=== PATIENT | female | born 1960 | race Caucasian/White ===

== ENCOUNTER 2016-07-10 19:55 | Inpatient (IN) | payer OTHER ==
[~2016-07-10] VITALS: Ht 157.5 cm; Wt 41.8 kg
[~2016-07-10 19:55] MED LIST: DEXT30CA6 PO; DEXT5TAB27 PO; DICL75TA PO; METH10TA2 PO; OLAN15TA3 PO
[2016-07-10] MEDS ORDERED: IPRATRPIUM/ALBUTEROL 0.5/2.5MG 3 ML NEBU. ONE (20:01)
--- NOTE | 2016-07-10 20:01 | ED.ADGEN ---
Past History Past Medical History: Arthritis, COPD, Other Past Surgical History: Appendectomy, , Hip Replacement, Knee Replacement, Tubal ligation, Other Smoking: Cigarettes, Greater than 1 pack/day Alcohol Use: None Drug Use: None Adult General Chief Complaint Chief Complaint Short of breath HPI HPI Patient is a 55 year old and female who presents with orders of breath and wheezing. She states that she has a concentrator at home and oxygen tanks but she's been a powerful last 4 days. She states she used up her oxygen Use her breathing treatment machines and she woke up this morning feeling short of breath and over the course of the day it got worse. She states she's been having a cream colored sputum production which she has at times. She had some chest discomfort however that feels better now that she is on oxygen. She denies any fevers chills nausea or vomiting. She also has a history of rheumatoid arthritis she states she's been on oxygen around 2-2-1/2 L a day's for the last 6 months. EMS had put on BiPAP and gave her breathing treatment in route. Review of Systems Review of Systems Constitutional: Denies fever or chills [] Eyes: Denies change in visual acuity, redness, or eye pain [] HENT: Denies nasal congestion or sore throat [] Respiratory: Positive for wheezing or shortness of breath Cardiovascular: No additional information not addressed in HPI [] GI: Denies abdominal pain, nausea, vomiting, bloody stools or diarrhea [] : Denies dysuria or hematuria [] Musculoskeletal: Denies back pain or joint pain [] Integument: Denies rash or skin lesions [] Neurologic: Denies headache, focal weakness or sensory changes [] Endocrine: Denies polyuria or polydipsia [] Current Medications Current Medications Current Medications Medications (Trade) Dose Ordered Sig/Maribel Start Time Stop Time Status Last Admin Dose Admin Albuterol/ Ipratropium (Duoneb) 3 ml STK-MED ONCE 07/10/16 20:01 07/10/16 20:02 DC Azithromycin (Zithromax) 500 mg 1X ONCE 07/10/16 21:15 07/10/16 21:16 DC Methadone HCl (Dolophine) 10 mg Q8H PRN 07/10/16 22:15 UNV Methylprednisolone Sodium Succinate (Solu-Medrol 125mg Vial) 125 mg 1X ONCE 07/10/16 20:15 07/10/16 20:16 DC 07/10/16 20:15 125 MG Allergies Allergies Allergies Coded Allergies Type Severity Reaction Last Updated Verified Penicillins Allergy Unknown DIFFICULTY BREATHING 11/03/14 No Physical Exam Physical Exam Constitutional: Well developed, well nourished, no acute distress, non-toxic appearance. [] HENT: Normocephalic, atraumatic, bilateral external ears normal, oropharynx moist, no oral exudates, nose normal. [] Eyes: PERRLA, EOMI, conjunctiva normal, no discharge. [] Neck: Normal range of motion, no tenderness, supple, no stridor. [] Cardiovascular:Heart rate regular rhythm, no murmur [] Lungs & Thorax: Bilateral breath sounds decreased in the bases with moderate expiratory wheezing bilaterally. Abdomen: Bowel sounds normal, soft, no tenderness, no masses, no pulsatile masses. [] Skin: Warm, dry, no erythema, no rash. [] Back: No tenderness, no CVA tenderness. [] Extremities: No tenderness, no cyanosis, no clubbing, ROM intact, no edema. [] Neurologic: Alert and oriented X 3, normal motor function, normal sensory function, no focal deficits noted. [] Psychologic: Affect normal, judgement normal, mood normal. [] Current Patient Data Vital Signs Vital Signs Date Time Temp Pulse Resp B/P (MAP) Pulse Ox O2 Delivery O2 Flow Rate FiO2 07/10/16 19:55 99.0 118 28 159/105 (123) 99 Nasal Cannula 3.0 Lab Results Laboratory Tests Test 07/10/16 20:10 White Blood Count 6.9 x10^3/uL (4.0-11.0) Red Blood Count 3.89 x10^6/uL (3.50-5.40) Hemoglobin 10.5 g/dL (12.0-15.5) L Hematocrit 32.1 % (36.0-47.0) L Mean Corpuscular Volume 83 fL (79-100) Mean Corpuscular Hemoglobin 27 pg (25-35) Mean Corpuscular Hemoglobin Concent 33 g/dL (31-37) Red Cell Distribution Width 18.0 % (11.5-14.5) H Platelet Count 578 x10^3/uL (140-400) H Neutrophils (%) (Auto) 56 % (31-73) Lymphocytes (%) (Auto) 33 % (24-48) Monocytes (%) (Auto) 7 % (0-9) Eosinophils (%) (Auto) 4 % (0-3) H Basophils (%) (Auto) 1 % (0-3) Neutrophils # (Auto) 3.8 x10^3uL (1.8-7.7) Lymphocytes # (Auto) 2.3 x10^3/uL (1.0-4.8) Monocytes # (Auto) 0.5 x10^3/uL (0.0-1.1) Eosinophils # (Auto) 0.2 x10^3/uL (0.0-0.7) Basophils # (Auto) 0.0 x10^3/uL (0.0-0.2) Sodium Level 144 mmol/L (136-145) Potassium Level 3.2 mmol/L (3.5-5.1) L Chloride Level 107 mmol/L (98-107) Carbon Dioxide Level 30 mmol/L (21-32) Anion Gap 7 (6-14) Blood Urea Nitrogen 9 mg/dL (7-20) Creatinine 0.6 mg/dL (0.6-1.0) Estimated GFR (Cockcroft-Gault) 103.0 Glucose Level 98 mg/dL (70-99) Calcium Level 8.9 mg/dL (8.5-10.1) Creatine Kinase 79 U/L (26-192) Creatine Kinase MB (Mass) 2.6 ng/mL (0.0-3.6) Creatine Kinase MB Relative Index 3.3 % (0-4) Troponin I Quantitative < 0.017 ng/mL (0-0.055) CG-Zzv-[id number]-Type Natriuretic Peptide 665 pg/mL (0-124) H EKG EKG EKG shows heart rate of 92 sinus rhythm, no ST elevations or T-wave inversions, normal axis, QTC 450 ms, as interpreted by me. Radiology/Procedures Radiology/Procedures View chest x-ray did not show any focal consolidations, bony abnormalities, pneumothorax, hyperinflated lungs noted, as interpreted by me. Course & Med Decision Making Course & Med Decision Making Pertinent Labs and Imaging studies reviewed. (See chart for details) Labs, chest x-ray, EKG is non-concerning, she'll need to be admitted since she doesn't have a oxygen at home or electricity at this point. DuMando nebs, oxygen is been applied, she was started on azithromycin po and 125 Solu-Medrol has been given IV. She is stable condition this time be admitted to the hospitalist. Final Impression Final Impression COPD exacerbation Methadone dependent Chronic anemia Hypokalemia Problems: Dragon Disclaimer Dragon Disclaimer This electronic medical record was generated, in whole or in part, using a voice recognition dictation system. MOOKIE BECERRA MD July 10, 2016 20:01
[2016-07-10] MEDS ORDERED: IPRATRPIUM/ALBUTEROL 0.5/2.5MG 3 ML NEBU. NEB ONE (20:15)
[2016-07-10] MEDS ORDERED: methylPREDNISolone SOD SUCC PF 125 MG/2 ML VIAL. IV ONE (20:15)
[2016-07-10 20:31] LABS: BASO % 1 % (0-3); EOS # 0.2 x10^3/uL (0.0-0.7); EOS % 4 % (0-3); HEMATOCRIT 32.1 % (36.0-47.0); HEMOGLOBIN 10.5 g/dL (12.0-15.5); LYMPH # 2.3 x10^3/uL (1.0-4.8); LYMPH % 33 % (24-48); MEAN CORPUSCULAR HEMOGLOBIN 27 pg (25-35); MEAN CORPUSCULAR HGB CONC 33 g/dL (31-37); MEAN CORPUSCULAR VOLUME 83 fL (79-100); MONO # 0.5 x10^3/uL (0.0-1.1); MONO % 7 % (0-9); NEUT # 3.8 x10^3uL (1.8-7.7); NEUT % 56 % (31-73); PLATELET COUNT 578 x10^3/uL (140-400); RED BLOOD COUNT 3.89 x10^6/uL (3.50-5.40); WHITE BLOOD COUNT 6.9 x10^3/uL (4.0-11.0)
[2016-07-10 20:48] LABS: CALCIUM 8.9 mg/dL (8.5-10.1); CREATININE 0.6 mg/dL (0.6-1.0); POTASSIUM 3.2 mmol/L (3.5-5.1)
[2016-07-10] MEDS ORDERED: AZITHROMYCIN 250 MG TABLET. PO ONE (21:15)
--- NOTE | 2016-07-10 21:40 | ACF ---
Admission Criteria Forms COPD Clinical Indications for Admission to Inpatient Care (Place 'X' for any and all applicable criteria): Admission is indicated for ANY ONE of the following (1)(2)(3): [X ]I. Acute exacerbation by high-risk comorbidity (e.g., pneumonia, dysrhythmia, heart failure, pleural effusion, pneumothorax) or severe underlying COPD (e.g., steroid dependent) [ ]II. Inpatient admission required rather than observation care (see Chronic Obstructive Pulmonary Disease: Observation Care) because of ANY ONE of the following: [ ]a) New or pre-existing signs or symptoms of COPD (eg, dyspnea or Tachypnea at rest or with minimal activity) that persist despite outpatient and observation care treatment [ ]b) New-onset hypoxemia (room air SaO2 less than 90%, PO2 less than 60 mm Hg (8.0 kPa)) that persists despite outpatient and observation care treatment [ ]c) Worsening of pre-existing hypoxemia (eg, new or increased requirement for supplemental oxygen to maintain oxygenation at baseline level) that persists despite outpatient and observation care treatment, with oxygen treatment needs performable only in acute inpatient setting [ ]d) Hypercarbia (PCO2 greater than 40 mm Hg (5.3 kPa))-induced respiratory acidosis (pH less than 7.35) that persists despite outpatient and observation care treatment [ ]e) Supplemental oxygen or respiratory treatments for over 24 hours that are performable only in acute inpatient setting [ ]f) Chest tube placement with active evacuation (e.g., suction, drainage) (5) [ ]g) Other condition, treatment or monitoring requiring inpatient admission [ ]III. Planned invasive surgical or diagnostic procedures requiring acute- care hospitalization [ ]IV. Acute respiratory failure (e.g., uncompensated hypercarbia, severe hypoxemia) [ ]V. Severe comorbid condition (e.g., severe steroid myopathy, acute vertebral fracture) that has acutely worsened pulmonary function [ ]. Confusion state, lethargy, obtundation, stupor or coma Extended stay beyond goal length of stay may be needed for (31)(32): [ ]a ) Respiratory Failure. [ ]b) Severe or persisting hypoxemia or hypercarbia [ ]c) Severe or persistent dyspnea [ ]d) Comorbidities (e.g. chronic heart failure, atrial fibrillation with rapid response, pneumonia) [ ]e) Malnutrition The original [facility] content created by [employer] has been revised. The portions of the content which have been revised are identified through the use of italic text or in bold, and [employer] has neither reviewed nor approved the modified material. All other unmodified content is copyright [facility]. Please see references footnoted in the original [facility] edition 2016 Admission Criteria Met?: Yes NADER LOPEZ July 10, 2016 21:40
[2016-07-10] MEDS ORDERED: POTASSIUM CHLORIDE 20 MEQ TABLET.ER. PO ONE (22:45)
[2016-07-10] MEDS ORDERED: METHADONE 5 MG/5 ML SOLUTION. PEG PRN (22:45)
[2016-07-10] MEDS: ONDANSETRON PF 4 MG/2 ML VIAL. IV PRN (22:55)
--- NOTE | 2016-07-10 22:58 | EKG ---
[address] [address] Test Date: 2016-07-10 Test Time: 20:23:43 Pat Name: ROBBIE QUEZADA Department: Room: 120 A Gender: F Sterile Proc Tech: : 1960 Requested By: MOOKIE BECERRA Order Number: [id number] Reading MD: Surendra Zepeda Measurements Intervals [place] Rate: 104 P: 90 FL: 104 QRS: 4 QRSD: 96 T: 56 QT: 350 QTc: 461 Interpretive Statements SINUS TACHYCARDIA Electronically Signed On 07-16-2016 9:12:02 CDT by Surendra Zepeda
[2016-07-11] VITALS (7 sets, daily range): BP systolic 134–151; BP diastolic 74–83
[2016-07-11] MEDS ORDERED: SULF500T7 PO (01:35)
[2016-07-11] MEDS ORDERED: DEXT30CA6 PO (01:38)
[2016-07-11] MEDS ORDERED: TIZA4TAB PO (01:38)
[2016-07-11] MEDS ORDERED: PARO20TA3 PO (01:39)
[2016-07-11 01:40] LABS: BACTERIA,URINE FEW /HPF (0-FEW); BILIRUBIN,URINE NEG (NEG); CLARITY,URINE HAZY; COLOR,URINE YELLOW; GLUCOSE,URINE NEG (NEG); NITRITE,URINE NEG (NEG); RBC,URINE 0 /HPF (0-2); SQUAMOUS EPITHELIAL CELL,UR FEW /LPF; UROBILINOGEN,URINE 0.2 mg/dL (0.2 mg/dL)
[2016-07-11] MEDS ORDERED: IPRA4AER INH (01:42)
[2016-07-11] MEDS ORDERED: POTA10CA PO (01:43)
[2016-07-11] MEDS ORDERED: FURO20TA3 PO (01:43)
[2016-07-11] MEDS ORDERED: VARE1TAB20 PO (01:44)
[2016-07-11] MEDS ORDERED: FUROSEMIDE 20 MG TABLET PO PRN (01:45)
[2016-07-11] MEDS ORDERED: NON FORMULARY ITEM (Ipratropium/Albuterol Sulfate (Combivent Respimat Inhal) 1 PUFF) INH PRN (01:45)
[2016-07-11] MEDS ORDERED: tiZANidine 4 MG TABLET. PO PRN (01:45)
[2016-07-11] MEDS ORDERED: diphenhydrAMINE HCL 25 MG CAPSULE PO ONE (03:52)
[2016-07-11] MEDS ORDERED: diphenhydrAMINE HCL 25 MG CAPSULE PO PRN (04:00)
[2016-07-11] MEDS ORDERED: ACETAMINOPHEN 325 MG TABLET PO PRN (04:00)
[2016-07-11 04:15] LABS: BASO % 0 % (0-3); EOS % 0 % (0-3); HEMOGLOBIN 10.3 g/dL (12.0-15.5); LYMPH # 0.4 x10^3/uL (1.0-4.8); LYMPH % 7 % (24-48); MEAN CORPUSCULAR HEMOGLOBIN 27 pg (25-35); MEAN CORPUSCULAR HGB CONC 32 g/dL (31-37); MEAN CORPUSCULAR VOLUME 84 fL (79-100); MONO % 1 % (0-9); NEUT # 4.7 x10^3uL (1.8-7.7); NEUT % 92 % (31-73); PLATELET COUNT 583 x10^3/uL (140-400); RED BLOOD COUNT 3.83 x10^6/uL (3.50-5.40); RED CELL DISTRIBUTION WIDTH 18.2 % (11.5-14.5); WHITE BLOOD COUNT 5.1 x10^3/uL (4.0-11.0)
[2016-07-11 04:18] LABS: CALCIUM 9.1 mg/dL (8.5-10.1); CREATININE 0.7 mg/dL (0.6-1.0); GFR 86.2; POTASSIUM 4.5 mmol/L (3.5-5.1)
[2016-07-11] MEDS ORDERED: IPRATRPIUM/ALBUTEROL 0.5/2.5MG 3 ML NEBU. ONE (05:28)
[2016-07-11] MEDS ORDERED: ALBUTEROL SULFATE 2.5 MG/3 ML NEBU. NEB PRN (07:15)
--- NOTE | 2016-07-11 07:29 | RAD ---
Exam performed: One view chest. History: Shortness of breath today. Date of service: 07/10/16. Comparison: Single view chest from 11/03/14. Single AP upright portable view chest findings: Heart size and mediastinal silhouette appears within limits of normal. The pulmonary vascularity is unremarkable. Prominent interstitial markings are redemonstrated both lungs probably chronic. Emphysematous changes. No focal infiltrates, effusion or pneumothorax seen. The normal Impression: No acute cardiopulmonary process seen. Emphysematous and chronic interstitial changes are noted.
[2016-07-11] MEDS ORDERED: IPRATRPIUM/ALBUTEROL 0.5/2.5MG 3 ML NEBU. NEB SCH (08:00)
[2016-07-11] MEDS: DICLOFENAC SODIUM 75 MG TABLET.DR PO SCH ×2 (08:15→20:23)
[2016-07-11] MEDS: PARoxetine 20 MG TABLET PO SCH (08:15)
[2016-07-11] MEDS: sulfaSALAzine 500 MG TABLET PO SCH ×2 (08:15→20:22)
[2016-07-11] MEDS: POTASSIUM CHLORIDE 10 MEQ CAPSULE.ER. PO SCH (08:16)
[2016-07-11] MEDS: METHADONE 5 MG TABLET. PO PRN ×2 (09:31→17:51)
[2016-07-11] MEDS: IPRATRPIUM/ALBUTEROL 0.5/2.5MG 3 ML NEBU. NEB SCH ×3 (10:28→21:17)
[2016-07-11] MEDS ORDERED: methylPREDNISolone SOD SUCC PF 40 MG/ML VIAL. IV ONE (14:00)
[2016-07-11] MEDS ORDERED: BENZOCAINE 20% ORAL GEL 11.9GM TUBE. TP PRN (19:00)
--- NOTE | 2016-07-11 20:20 | HP ---
ADMIT DATE: 07/11/2016 HISTORY OF PRESENT ILLNESS: The patient is a 55-year-old female patient who came to the Emergency Room complaining of shortness of breath, right-sided chest pain, cough with greenish sputum that has been going on for the last 2 days. She was evaluated in the Emergency Room and was admitted with COPD exacerbation. PAST MEDICAL HISTORY: Significant for chronic obstructive pulmonary disease, rheumatoid arthritis, and marked unintentional weight loss from 170-95 pound. PAST SURGICAL HISTORY: Significant for bilateral total hip arthroplasty, left total knee arthroplasty, appendectomy, two C-sections, total abdominal hysterectomy, and bilateral salpingo-oophorectomy. ALLERGIES: She is allergic to penicillin. MEDICATIONS: She is currently on following medications: She is on Adderall XR 30 mg twice a day, diclofenac sodium 75 mg twice a day, furosemide 20 mg once a day, ipratropium bromide, albuterol sulfate, Combivent Respimat inhaler 1 puff every 4 hours, methadone 10 mg 3 times a day, paroxetine 20 mg daily, potassium chloride 20 mEq once a day, sulfasalazine 1000 mg p.o. b.i.d., and tizanidine 4 mg 3 times a day, Chantix 1 tablet as per starting dose. FAMILY HISTORY: Significant for one sister at age of 48 with multiple sclerosis. She has 2 brothers and 2 sisters they are healthy. Her father at age of 91 and mother at the age of 86 because of complication of hip surgery. SOCIAL HISTORY: She is , has 1 son and daughter. She smokes half a pack a day, does not drink alcohol or use any recreational drugs. She is on disability now. 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 REVIEW OF SYSTEMS: The patient denied any blurring of vision, cataract, glaucoma, or macular degeneration. Denied any earache, tinnitus, or sensorineural deafness. Denied any nosebleeds, stuffy nose, or postnasal drip. Denied any sore throat, sore tongue, toothache, hoarseness of voice, or difficulty swallowing. Denied any nausea, vomiting, diarrhea, or constipation. Denied any hematemesis, melena, or hematochezia. Denied any dysuria, frequency, or hematuria. Did complain obvious chest discomfort, shortness of breath, cough, yellowish sputum. Did complain of unintentional weight loss from 170 down to 95 pounds. PHYSICAL EXAMINATION: GENERAL: When I examined her on arrival to the Emergency Room, she was clearly markedly emaciated tachypneic, pale. No jaundice, cyanosis, or thyromegaly. No jugular venous distension. No lower limb edema. VITAL SIGNS: Her heart rate was 118, blood pressure was 159/105, temperature was 99, respiratory rate was 28, and oxygen saturation was 99% on 3 liters of oxygen by nasal cannula. HEAD, EYES, EARS, NOSE, AND THROAT: Normocephalic, atraumatic. NECK: Supple. HEART: Showed normal first and second heart sounds with no gallop, rub, or murmur. CHEST: ____ equally reduced expansion, reduced air entry, ____. There is scattered rhonchi with moderate bilateral expiratory wheezes. No crepitation. ABDOMEN: Scaphoid, soft, nontender. NEUROLOGIC: She was awake, alert, responding appropriately. Cranial nerves intact. EXTREMITIES: She moves extremities without difficulty. LABORATORY DATA: Showed that her white cell count was 6900, hemoglobin 10.5, hematocrit 32, MCV 83, and platelet count 578,000 with normal manual differential. Her chemistry showed a serum sodium 144, potassium 3.2, chloride 107, bicarbonate 30, anion gap of 7, BUN 9, creatinine 0.6, estimated GFR was 103 mL per minute. Her glucose was 98, calcium was 8.9, CK-MB and troponin were all normal. Her beta natriuretic peptide was 665. Her urinalysis was essentially unremarkable. Her chest x-ray showed that the heart size and mediastinal silhouette appears within normal limit. The pulmonary vascularity is unremarkable, prominent interstitial markings are redemonstrated in both lungs and both lungs probably chronic emphysematous changes, no focal infiltrate, effusion, or pneumothorax seen. IMPRESSION: No acute cardiopulmonary process seen. Emphysematous and chronic interstitial changes are noted. The patient was treated with Solu-Medrol as well as nebulized albuterol and Atrovent started, given Zithromax, and was admitted with diagnosis of acute bronchitis and chronic obstructive pulmonary disease exacerbation. We will continue with all her current medications including her sulfasalazine, diclofenac. We will follow her closely and decide on further management accordingly. NAINA BURRELL MD DR: Silvia JOB#: [id number] / [id number]
[2016-07-11] MEDS: DOXYCYCLINE HYCLATE 100 MG TABLET PO SCH (20:23)
[2016-07-11] MEDS: ONDANSETRON PF 4 MG/2 ML VIAL. IV PRN (20:34)
[2016-07-12 05:28] VITALS: BP 156/80
[2016-07-12] MEDS: IPRATRPIUM/ALBUTEROL 0.5/2.5MG 3 ML NEBU. NEB SCH ×4 (05:36→21:40)
[2016-07-12 06:27] LABS: BASO % 0 % (0-3); EOS % 0 % (0-3); HEMATOCRIT 29.5 % (36.0-47.0); HEMOGLOBIN 9.8 g/dL (12.0-15.5); LYMPH # 2.8 x10^3/uL (1.0-4.8); LYMPH % 29 % (24-48); MEAN CORPUSCULAR HEMOGLOBIN 27 pg (25-35); MEAN CORPUSCULAR HGB CONC 33 g/dL (31-37); MEAN CORPUSCULAR VOLUME 82 fL (79-100); MONO # 0.5 x10^3/uL (0.0-1.1); MONO % 5 % (0-9); NEUT # 6.2 x10^3uL (1.8-7.7); NEUT % 65 % (31-73); PLATELET COUNT 651 x10^3/uL (140-400); RED BLOOD COUNT 3.58 x10^6/uL (3.50-5.40); RED CELL DISTRIBUTION WIDTH 18.3 % (11.5-14.5); WHITE BLOOD COUNT 9.5 x10^3/uL (4.0-11.0)
[2016-07-12 06:43] LABS: ALBUMIN/GLOBULIN RATIO 0.5 (1.0-1.7); CALCIUM 9.5 mg/dL (8.5-10.1); CREATININE 0.7 mg/dL (0.6-1.0); GFR 86.2; POTASSIUM 4.6 mmol/L (3.5-5.1); TOTAL BILIRUBIN 0.3 mg/dL (0.2-1.0); TOTAL PROTEIN 8.9 g/dL (6.4-8.2)
[2016-07-12 07:33] LABS: ANISOCYTOSIS PRESENT; HYPOCHROMIA SLIGHT; PLT ESTIMATE INCREASED (ADEQUATE); TARGET CELLS PRESENT
[2016-07-12] MEDS: DICLOFENAC SODIUM 75 MG TABLET.DR PO SCH ×2 (08:00→20:46)
[2016-07-12] MEDS: DOXYCYCLINE HYCLATE 100 MG TABLET PO SCH ×2 (08:00→20:46)
[2016-07-12] MEDS: sulfaSALAzine 500 MG TABLET PO SCH ×2 (08:01→20:47)
[2016-07-12] MEDS: PARoxetine 20 MG TABLET PO SCH (08:01)
[2016-07-12] MEDS: POTASSIUM CHLORIDE 10 MEQ CAPSULE.ER. PO SCH ×2 (08:01→08:03)
[2016-07-12] MEDS: METHADONE 5 MG TABLET. PO PRN ×2 (08:01→15:12)
--- NOTE | 2016-07-12 09:40 | PN ---
DATE: 07/11/2016 SUBJECTIVE: The patient is sitting up in her bed in no apparent distress. She continued to have cough with the scanty yellowish sputum and some discomfort to the right side, especially when coughing, but denied any hemoptysis, continues to be somewhat short of breath, although generally she is feeling much better than yesterday. PHYSICAL EXAMINATION: GENERAL: When I examined her, she looked pale, cachectic, but no jaundice, cyanosis or thyromegaly. No jugular venous distention. No limb edema. VITAL SIGNS: Her heart rate was 108, blood pressure was 134/78, temperature was 98.2, respiratory rate 20 and oxygen saturation was 96%. HEAD, EYES, EARS, NOSE AND THROAT: Showed normocephalic, atraumatic. NECK: Supple. HEART: Showed normal first and second heart sounds. No gallop, rub or murmur. CHEST: Clear to auscultation. No crepitation or rhonchi. ABDOMEN: Distended, soft, nontender. No guarding or rigidity. No organomegaly. All hernial orifices intact. Bowel sounds normal. NEUROLOGIC: She was awake, alert, responding appropriately. Cranial nerves are intact. She moves extremities without difficulty, although she has severe pain in her right knee joint due to her rheumatoid arthritis. Her intake over the last 24 hours was 500, output was 100. LABORATORY DATA: Her lab work this morning showed that her serum sodium is 143, potassium is up to 4.5, chloride 106, bicarbonate 29, anion gap of 8, BUN 14, creatinine 0.7, estimated GFR was 86 mL per minute. Her glucose 132, calcium was 9.1. White cell count was 5100, hemoglobin 10, hematocrit 32, MCV 84 and platelet count of 583,000. She had 3 sets of cardiac enzyme, all of them showed troponin to be less than 0.017. PLAN: To continue with IV Solu-Medrol, continue with doxycycline 100 mg twice a day, continue with nebulized albuterol, Atrovent together with other medication. We will repeat her lab works tomorrow and decide on further management accordingly. NAINA BURRELL MD DR: JENNA/ayde JOB#: [id number] / [id number]
[2016-07-12 11:16] VITALS: BP 142/78
[2016-07-12] MEDS ORDERED: predniSONE 20 MG TABLET PO ONE (13:00)
[2016-07-12] MEDS: NICOTINE 14MG PATCH. TD SCH (13:39)
[2016-07-12 15:10] VITALS: BP 150/88
--- NOTE | 2016-07-12 19:24 | PN ---
DATE: 07/12/2016 SUBJECTIVE: The patient is sitting on the edge of the bed, eating her lunch, continued to have chest tightness and shortness of breath. PHYSICAL EXAMINATION: GENERAL: On examining her, she is extremely cachectic, somewhat pale, but no jaundice, cyanosis, or thyromegaly. No jugular venous distention. No limb edema. VITAL SIGNS: Her heart rate was 107, blood pressure 142/78, temperature was 99.3, respiratory rate 22 and oxygen saturation was 90% on room air. HEAD, EYES, EARS, NOSE AND THROAT: Showed normocephalic, atraumatic. NECK: Supple. HEART: Showed normal first and second heart sounds. No gallop, rub or murmur. CHEST: Clear to auscultation. Chest showed central trachea, equal bilateral expansion, air entry, vesicular sounds with bilateral scattered rhonchi. I could not appreciate any crepitation. ABDOMEN: Distended, scaphoid, soft, nontender. No guarding or rigidity. No organomegaly. All hernial orifices intact. Bowel sounds normal. NEUROLOGIC: She is awake, somehow confused today. All her cranial nerves are intact. She moves extremities without difficulty. Her intake was 500, output was 100. LABORATORY DATA: Her lab work showed a white cell count of 9500, hemoglobin 10, hematocrit 30, MCV 82 and platelet count of 651,000. Her chemistry showed a serum sodium 138, potassium 4.6, chloride 102, bicarbonate 27, anion gap of 9, BUN 34, creatinine 0.7, estimated GFR was 86 mL per minute. Her glucose was 80, calcium was 9.5. Total bilirubin, AST, ALT were normal. Alkaline phosphatase slightly elevated. Total protein was 8.9, albumin was 3. Her C-reactive protein was 34.9 and erythrocyte sedimentation rate was 92 mm per hour. ASSESSMENT: 1. Acute bronchitis. 2. Chronic obstructive pulmonary disease exacerbation. 3. Rheumatoid arthritis. NAINA BURRELL MD DR: JENNA/ayde JOB#: [id number] / [id number]
[2016-07-12 19:30] VITALS: BP 141/84
[2016-07-12] MEDS ORDERED: OLANZapine 2.5 MG TABLET PO PRN (19:30)
[2016-07-12] MEDS: FLUTICASONE 50MCG/NASAL SPRAY 16GM BOTTLE. NS SCH (20:47)
--- NOTE | 2016-07-12 20:51 | RAD ---
PROCEDURE NONCONTRAST CT AT HISTORY 775912.001 Change in mental status, confusion, delusional. No priors. TECHNIQUE AXIAL NONCONTRAST IMAGES CT HEAD WERE PAIN. COMPARISON NO PRIOR IMAGES ARE AVAILABLE FOR COMPARISON. FINDINGS NO ACUTE OR SIGNIFICANT CALVARIAL FINDING IS SEEN. THE VISUALIZED PARANASAL SINUSES APPEAR UNREMARKABLE. THERE IS NO SUBDURAL OR EPIDURAL HEMATOMA. THERE IS SOME UNDERLYING ATROPHY. THERE IS A LUCENCY IN THE RIGHT DEEP WHITE MATTER. THIS LIKELY REFLECTS OLD DEEP WHITE MATTER MICROVASCULAR DISEASE OR AN OLD DEEP WHITE MATTER INFARCT. A LATE SUBACUTE OR EARLY CHRONIC INFARCT IS NOT ENTIRELY EXCLUDED. IF ADDITIONAL EVALUATION FOR BLAND INFARCT IS WARRANTED AN MRI EXAMINATION COULD BE PERFORMED. THERE IS NO EVIDENCE OF HEMORRHAGE. IMPRESSION Deep white matter lucency in the right cerebral hemisphere probably reflects old disease. A late subacute or early chronic infarct is not entirely excluded. There is no evidence of hemorrhage. No mass or midline shift is seen Electronically signed by: Vadim Wells (July 12, 2016 20:50:00)
--- NOTE | 2016-07-12 20:52 | PDOC ---
Exam Steve Demential Exam: Steve Note: Please also refer to the separate dictated note~for this date of service dictated separately.~Patient seen individually. Discussed the patient with Nursing staff reviewed the chart.~Reviewed interim history and current functioning. Reviewed vital signs,~Labs/ Radiology~and current medications noted below. Continue current treatment with the changes noted in the dictated addendum note Assessment: Vital Signs: Vital Signs Date Time Temp Pulse Resp B/P (MAP) Pulse Ox O2 Delivery O2 Flow Rate FiO2 07/12/16 19:30 98.3 106 20 141/84 (103) 91 07/12/16 15:41 Room Air 07/12/16 08:05 2.0 I&O Intake and Output 07/12/16 07:00 Intake Total 2660 ml Balance 2660 ml Intake Oral 2660 ml # Voids 7 Labs: Laboratory Tests Test 07/12/16 06:14 White Blood Count 9.5 x10^3/uL (4.0-11.0) # Red Blood Count 3.58 x10^6/uL (3.50-5.40) Hemoglobin 9.8 g/dL (12.0-15.5) L Hematocrit 29.5 % (36.0-47.0) L Mean Corpuscular Volume 82 fL (79-100) Mean Corpuscular Hemoglobin 27 pg (25-35) Mean Corpuscular Hemoglobin Concent 33 g/dL (31-37) Red Cell Distribution Width 18.3 % (11.5-14.5) H Platelet Count 651 x10^3/uL (140-400) H Neutrophils (%) (Auto) 65 % (31-73) Lymphocytes (%) (Auto) 29 % (24-48) Monocytes (%) (Auto) 5 % (0-9) Eosinophils (%) (Auto) 0 % (0-3) Basophils (%) (Auto) 0 % (0-3) Neutrophils # (Auto) 6.2 x10^3uL (1.8-7.7) Lymphocytes # (Auto) 2.8 x10^3/uL (1.0-4.8) Monocytes # (Auto) 0.5 x10^3/uL (0.0-1.1) Eosinophils # (Auto) 0.0 x10^3/uL (0.0-0.7) Basophils # (Auto) 0.0 x10^3/uL (0.0-0.2) Platelet Estimate Increased (ADEQUATE) Hypochromasia Slight Anisocytosis Present Target Cells Present Erythrocyte Sedimentation Rate 92 (0-25) H Sodium Level 138 mmol/L (136-145) Potassium Level 4.6 mmol/L (3.5-5.1) Chloride Level 102 mmol/L (98-107) Carbon Dioxide Level 27 mmol/L (21-32) Anion Gap 9 (6-14) Blood Urea Nitrogen 34 mg/dL (7-20) H Creatinine 0.7 mg/dL (0.6-1.0) Estimated GFR (Cockcroft-Gault) 86.2 BUN/Creatinine Ratio 49 (6-20) H Glucose Level 80 mg/dL (70-99) Calcium Level 9.5 mg/dL (8.5-10.1) Total Bilirubin 0.3 mg/dL (0.2-1.0) Aspartate Amino Transferase (AST) 16 U/L (15-37) Alanine Aminotransferase (ALT) 16 U/L (14-59) Alkaline Phosphatase 158 U/L (46-116) H C-Reactive Protein 34.9 mg/L (0-3.3) H Total Protein 8.9 g/dL (6.4-8.2) H Albumin 3.0 g/dL (3.4-5.0) L Albumin/Globulin Ratio 0.5 (1.0-1.7) L Current Medications: Meds: Current Medications Albuterol/ Ipratropium (Duoneb) 3 ml 1X ONCE NEB Last administered on 20:05; Start 07/10/16 at 20:15; Stop 07/10/16 at 20:16; Status DC Methylprednisolone Sodium Succinate (Solu-Medrol 125mg Vial) 125 mg 1X ONCE IV Last administered on 07/10/16 20:15; Start 07/10/16 at 20:15; Stop 07/10/16 at 20:16; Status DC Albuterol/ Ipratropium (Duoneb) 3 ml STK-MED ONCE .ROUTE ; Start 07/10/16 at 20: 01; Stop 07/10/16 at 20:02; Status DC Azithromycin (Zithromax) 500 mg 1X ONCE PO Last administered on 07/10/16 22:55 ; Start 07/10/16 at 21:15; Stop 07/10/16 at 21:16; Status DC Methadone HCl (Dolophine) 10 mg PRN Q8HRS PRN PEG PAIN Last administered on 07/10 23:21; Start 07/10/16 at 22:45; Stop 07/11/16 at 08:33; Status DC Potassium Chloride (Klor-Con) 40 meq 1X ONCE PO Last administered on 07/10/16 22:55; Start 07/10/16 at 22:45; Stop 07/10/16 at 22:46; Status DC Ondansetron HCl (Zofran) 4 mg PRN Q4HRS PRN IV NAUSEA/VOMITING Last administered on 07/11/16 20:34; Start 07/10/16 at 22:45; Stop 07/11/16 at 22:44 ; Status DC Albuterol/ Ipratropium (Duoneb) 3 ml RTQID NEB Last administered on 07/11/16 05:33; Start 07/11/16 at 08:00; Stop 07/11/16 at 08:00; Status DC Diclofenac Sodium (Voltaren) 75 mg BID PO Last administered on 07/12/16 20:46 ; Start 07/11/16 at 09:00 Furosemide (Lasix) 20 mg PRN DAILY PRN PO SEE COMMENTS; Start 07/11/16 at 01:45 Paroxetine HCl (Paxil) 20 mg DAILY PO Last administered on 07/12/16 08:01; Start 07/11/16 at 09:00 Potassium Chloride (Micro-K) 20 meq DAILY PO Last administered on 07/11/16 08: 16; Start 07/11/16 at 09:00 Sulfasalazine (Azulfidine) 1,000 mg BID PO Last administered on 07/12/16 20:47 ; Start 07/11/16 at 09:00 Tizanidine HCl (Zanaflex) 4 mg PRN TID PRN PO MUSCLE SPASMS Last administered on 07/12/16 20:46; Start 07/11/16 at 01:45 Non-Formulary Medication 1 puff Q4HRS PRN INH COUGH; Start 07/11/16 at 01:45; Stop 07/11/16 at 07:09; Status DC Diphenhydramine HCl (Benadryl) 50 mg PRN Q6HRS PRN PO ITCHING Last administered on 07/11/16 03:58; Start 07/11/16 at 04:00 Acetaminophen (Tylenol) 650 mg PRN Q6HRS PRN PO PAIN Last administered on 03:57; Start 07/11/16 at 04:00 Diphenhydramine HCl (Benadryl) 25 mg STK-MED ONCE PO ; Start 07/11/16 at 03:52; Stop 07/11/16 at 03:53; Status DC Albuterol/ Ipratropium (Duoneb) 3 ml STK-MED ONCE .ROUTE Last administered on 00:00; Start 07/11/16 at 05:28; Stop 07/11/16 at 05:29; Status DC Albuterol Sulfate (Ventolin) 2.5 mg PRN Q4HRS PRN NEB SHORTNESS OF BREATH; Start 07/11/16 at 07:15 Albuterol/ Ipratropium (Duoneb) 3 ml RTQID NEB Last administered on 07/12/16 15:41; Start 07/11/16 at 08:00 Methadone HCl (Dolophine) 10 mg PRN Q8HRS PRN PO PAIN Last administered on 07/12 15:12; Start 07/11/16 at 08:45 Methylprednisolone Sodium Succinate (Solu-Medrol 40mg Vial) 40 mg 1X ONCE IV Last administered on 07/11/16 14:37; Start 07/11/16 at 14:00; Stop 07/11/16 at 14:01; Status DC Doxycycline Hyclate (Vibra-Tab) 100 mg BID PO Last administered on 07/12/16 20 :46; Start 07/11/16 at 21:00 Benzocaine (Ora-Jel Maximum) 1 martine PRN QID PRN TP ORAL PAIN Last administered on 07/11/16 20:22; Start 07/11/16 at 19:00 Prednisone (Prednisone) 40 mg 1X ONCE PO Last administered on 07/12/16 13:39 ; Start 07/12/16 at 13:00; Stop 5/11/17 at 13:01; Status DC Nicotine (Nicoderm Cq 14mg) 1 patch DAILY TD Last administered on 07/12/16 13: 39; Start 07/12/16 at 14:00 Fluticasone Propionate (Flonase) 2 spray BID NS Last administered on 07/12/16 20:47; Start 07/12/16 at 21:00 Olanzapine (Zyprexa) 2.5 mg PRN Q2HR PRN PO PSYCHOSIS; Start 07/12/16 at 19:30 Active Scripts Active Reported Chantix (Varenicline Tartrate) 1 Each Tab.ds.pk 1 Each PO Potassium Chloride 10 Meq Capsule.er 20 Meq PO DAILY Furosemide 20 Mg Tablet 1 Tab PO DAILY PRN Combivent Respimat Inhal (Ipratropium/Albuterol Sulfate) 4 Gm Aer.w.adap 1 Puff INH Q4HRS PRN Paroxetine Hcl 20 Mg Tablet 1 Tab PO DAILY Tizanidine Hcl (Tizanidine HCl) 4 Mg Tablet 4 Mg PO TID PRN Sulfasalazine 500 Mg Tablet 1,000 Mg PO BID Diclofenac Sodium 75 Mg Tablet.dr 1 Tab PO BID Methadone Hcl 10 Mg Tablet 1 Tab PO TID Adderall Xr 30 Mg Capsule (Dextroamphetamine/Amphetamine) 30 Mg Cap.er.24h 1 Cap PO BID ROBERT REHMAN MD July 12, 2016 20:52
[2016-07-12 21:20] LABS: AMPHETAMINE/METHAMPHETAMINE POS (NEG); BARBITURATES NEG (NEG); BENZODIAZEPINES NEG (NEG); CANNABINOIDS NEG (NEG); COCAINE NEG (NEG); METHADONE POS (NEG); OPIATES NEG (NEG); PHENCYCLIDINE NEG (NEG)
[2016-07-12 23:30] VITALS: BP 128/76
[2016-07-13] MEDS: IPRATRPIUM/ALBUTEROL 0.5/2.5MG 3 ML NEBU. NEB SCH ×2 (05:21→10:33)
[2016-07-13 05:36] VITALS: BP 148/74
[2016-07-13 06:26] LABS: BASO % 0 % (0-3); EOS % 0 % (0-3); HEMOGLOBIN 8.8 g/dL (12.0-15.5); LYMPH # 1.5 x10^3/uL (1.0-4.8); LYMPH % 20 % (24-48); MEAN CORPUSCULAR HEMOGLOBIN 27 pg (25-35); MEAN CORPUSCULAR HGB CONC 33 g/dL (31-37); MEAN CORPUSCULAR VOLUME 82 fL (79-100); MONO # 0.3 x10^3/uL (0.0-1.1); MONO % 4 % (0-9); NEUT # 5.7 x10^3uL (1.8-7.7); NEUT % 76 % (31-73); PLATELET COUNT 564 x10^3/uL (140-400); RED BLOOD COUNT 3.28 x10^6/uL (3.50-5.40); RED CELL DISTRIBUTION WIDTH 18.2 % (11.5-14.5); WHITE BLOOD COUNT 7.6 x10^3/uL (4.0-11.0)
[2016-07-13 06:36] LABS: ALBUMIN 2.6 g/dL (3.4-5.0); ALBUMIN/GLOBULIN RATIO 0.5 (1.0-1.7); CALCIUM 8.6 mg/dL (8.5-10.1); CREATININE 0.6 mg/dL (0.6-1.0); POTASSIUM 4.6 mmol/L (3.5-5.1); TOTAL BILIRUBIN 0.2 mg/dL (0.2-1.0); TOTAL PROTEIN 7.7 g/dL (6.4-8.2)
[2016-07-13] MEDS: NICOTINE 14MG PATCH. TD SCH (09:30)
[2016-07-13] MEDS: sulfaSALAzine 500 MG TABLET PO SCH (09:30)
[2016-07-13] MEDS: METHADONE 5 MG TABLET. PO PRN (09:30)
[2016-07-13] MEDS: DOXYCYCLINE HYCLATE 100 MG TABLET PO SCH (09:30)
[2016-07-13] MEDS: DICLOFENAC SODIUM 75 MG TABLET.DR PO SCH (09:30)
[2016-07-13] MEDS: PARoxetine 20 MG TABLET PO SCH (09:31)
[2016-07-13] MEDS: POTASSIUM CHLORIDE 10 MEQ CAPSULE.ER. PO SCH (09:31)
[2016-07-13] MEDS: FLUTICASONE 50MCG/NASAL SPRAY 16GM BOTTLE. NS SCH (09:31)
[2016-07-13 10:57] VITALS: BP 127/74
[2016-07-13] MEDS ORDERED: DOXY100C2 PO (14:29)
--- NOTE | 2016-07-13 15:14 | CONS ---
DATE OF CONSULTATION: 07/12/2016 IDENTIFYING DATA: The patient is a 55-year-old female seen in bed [address] [facility] for a psychiatric consult requested by Dr. Yuen on account of the patient's hallucinations, acute mental status changes, talking to herself, and abnormal behaviors all within the last 12-14 hours. The patient had been in the hospital prior to that since 07/10/2016, and had not shown any of these behaviors. I have been asked to consult from a psychiatric standpoint. CHIEF COMPLAINT: "I've been diagnosed with bipolar disorder and OCD in the past and attention deficit disorder. I was on Seroquel in the past and take Adderall and Zoloft. I talk to my dog, but I do not hallucinate. Yes I talk in different voices, but I choose to do that." The patient is seen individually, discussed with nursing staff, and reviewed current past records. HISTORY OF PRESENT ILLNESS: The patient was admitted via the Emergency Room complaining of shortness of breath, right-sided chest pain, cough, and greenish sputum for the past 2 days. She was admitted with exacerbation of COPD. As stated, initially she did reasonably from a psychiatric standpoint, but since early today she is appeared manic according to nursing staff. She is "destroyed her room." Reportedly, the toilet is clogged. She took her SCD machine and put through it in the trashcan. She was looking for her grandson in the corridor and talking to herself an unknown objects in the corridor. She minimizes all of this. No suicidal or homicidal ideation, but she remains oriented to place and situation despite the above. PAST PSYCHIATRIC HISTORY: In addition to the past diagnosis of bipolar disorder, ADHD, depression, and anxiety she has had a rehab treatment for methamphetamine abuse, but denies using it for a long time. She states she saw a psychiatrist, but unsure of who it was and was unable to corroborate any other mood stabilizers she had been on for her bipolar disorder. PAST MEDICAL HISTORY: COPD with exacerbation, rheumatoid arthritis, and unintentional weight loss from 170 to 95 pounds. PAST SURGICAL HISTORY: Bilateral total hip arthroplasty, left total knee arthroplasty, appendectomy, two C-sections, total abdominal hysterectomy, and bilateral salpingo-oophorectomy. DRUG ALLERGIES: PENICILLIN. CURRENT PSYCHOTROPICS: Adderall-XR 30 mg twice a day. She is also on methadone 10 mg 3 times a day for pain and Paxil 20 mg a day. FAMILY HISTORY: One sister at age 48 with multiple sclerosis. No other relevant family psychiatric history was noted, but she was quite disorganized as I met with her. SOCIAL HISTORY: She is and has 1 son and her daughter. Smokes half a pack a day. Denies alcohol or current drug usage. She is on disability. 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 The patient was living in her home with her children and reportedly there is an $1800 electricity bill that was unpaid and power were shut off. The patient was unable to use oxygen reportedly. PHYSICAL EXAMINATION: VITAL SIGNS: Temperature 97.9, pulse 104, and BP 150/88. MENTAL STATUS EXAMINATION: I met with the patient at some length in her room. She is oriented to the date, knew it was 07/12/2016, and knew she was at [facility]. Extremely hyper-restless and attentive. Her room had things all over on the floor and in the trashcan. Attention span short. Speech coherent and rapid. She appears psychotic even though she denies any hallucinations. No suicidal or homicidal ideation. IMPRESSION: Psychotic disorder, unspecified, acute mental status changes, bipolar 1 disorder mixed with psychotic features, history of attention deficit hyperactivity disorder, and anxiety disorder, unspecified. Rest diagnoses as above. PLAN: The lisa of the patient's acute mental status changes is not entirely clear. We would recommend having urine drug screen, CT head, and starting Zyprexa 2.5 mg q.2 hours p.r.n. psychosis and agitation max 10 mg in 24 hours. I would like to see how the patient does with all of this, but if the bipolar symptoms seem to be contributing to her above we may have to reduce or stop the Paxil; decide on Adderall whether to continue it or not. Start her on a mood stabilizer. She should probably need outpatient psychiatric followup at the [facility] post-discharge. Dr. Yuen, thank you for the opportunity to participate in your patient's care. We will follow with you. ROBERT REHMAN MD DR: CLARICE/ayde JOB#: [id number] / [id number]
--- NOTE | 2016-07-13 20:04 | DS ---
DATE OF DISCHARGE: 07/13/2016 HOSPITAL COURSE: The patient is a 55-year-old female patient who was admitted originally with increasing shortness of breath and wheezing. Apparently, she has a concentrator at home and oxygen tanks but she has been without power for the last 4 days and she apparently used up all her oxygen and all her breathing treatment and cannot use her breathing machine. She was basically admitted with COPD exacerbation and was continued on her albuterol sulfate, continued with doxycycline 100 mg twice a day and arrangement has been made for her to have oxygen tanks and also her electricity bill was apparently paid for and it was felt that the patient is safe to go back home. She did have an episode of delirium while in the hospital for which she was seen by Dr. Gilbert and she has been more lucid today, oriented to time, place and person and a decision was made to discharge her home to follow obviously with her primary care physician. PHYSICAL EXAMINATION: GENERAL: When I examined her, she looked well and was clearly in no apparent respiratory distress. She was pale, cachectic, but no jaundice, cyanosis, or thyromegaly. No jugular venous distention. No limb edema. VITAL SIGNS: Her heart rate was 87, blood pressure 127/74, temperature was 97.8, respiratory rate 20 and oxygen saturation was 97% on 2 liters of oxygen. HEAD, EYES, EARS, NOSE AND THROAT: Showed normocephalic, atraumatic. NECK: Supple. HEART: Showed normal first and second heart sounds with no gallop, rub or murmur. CHEST: Clear to auscultation. No crepitation or rhonchi. ABDOMEN: Scaphoid, soft, nontender. NEUROLOGIC: She is awake, alert, responding appropriately. Cranial nerves are intact. EXTREMITIES: She moves extremities without difficulty. LABORATORY DATA: Her lab work as of this morning showed a white cell count of 7600, hemoglobin 8.8, hematocrit 27, MCV 82 and platelet count of 564,000. Her chemistry showed a serum sodium 137, potassium 4.6, chloride 102, bicarbonate 29, anion gap of 6, BUN of 26, creatinine 0.6, estimated GFR was 103 mL per minute. Her glucose 115, calcium was 8.6. Total bilirubin, AST, ALT were normal. Alkaline phosphatase was slightly elevated. Her total protein was 7.7, albumin 2.6. DISCHARGE MEDICATIONS: The patient was discharged home to continue on following medication: Dextroamphetamine and amphetamine or Adderall XR 30 mg twice a day, diclofenac sodium 75 mg twice a day, furosemide 20 mg once a day, ipratropium bromide, albuterol sulfate, Combivent Respimat 1 puff every 4 hours, methadone 10 mg 3 times a day, paroxetine 20 mg daily, potassium chloride 20 mEq once a day, sulfasalazine 1000 mg p.o. t.i.d. and tizanidine 4 mg t.i.d. FINAL DISCHARGE DIAGNOSES: 1. Chronic obstructive pulmonary disease exacerbation. 2. Rheumatoid arthritis. 3. Marked weight loss. NAINA BURRELL MD DR: JENNA/ayde JOB#: [id number] / [id number]
== END 2016-07-13 15:51 | disposition home or self-care (01) | DRG 191 ==
LOC: ER 19:55 → INTOOBSV 22:31 → 1 SOUTH 22:31 → OBSVTOIN 07-13 15:37
PROVIDERS: ADMIT Internal Medicine; ATTEND Internal Medicine
DX: J44.0 Chronic obstructive pulmonary disease with (acute) lower respiratory infection (principal); F31.60 Bipolar disorder, current episode mixed, unspecified; F11.20 Opioid dependence, uncomplicated; J20.9 Acute bronchitis, unspecified; J44.1 Chronic obstructive pulmonary disease with (acute) exacerbation; M06.9 Rheumatoid arthritis, unspecified; R63.4 Abnormal weight loss; M19.90 Unspecified osteoarthritis, unspecified site; F29 Unspecified psychosis not due to a substance or known physiological condition; F90.9 Attention-deficit hyperactivity disorder, unspecified type; F17.210 Nicotine dependence, cigarettes, uncomplicated; F41.9 Anxiety disorder, unspecified; E87.6 Hypokalemia; F42.9 Obsessive-compulsive disorder, unspecified; Z96.649 Presence of unspecified artificial hip joint; Z96.652 Presence of left artificial knee joint; Z90.710 Acquired absence of both cervix and uterus; Z90.49 Acquired absence of other specified parts of digestive tract; Z88.0 Allergy status to penicillin; Z98.51 Tubal ligation status; Z90.722 Acquired absence of ovaries, bilateral; D64.9 Anemia, unspecified
CPT/HCPCS: 36415; 70450; 71010; 80048; 80053; 81001; 82553; 83735; 83880; 84484; 85008; 85027; 85651; 86140; 87086; 93005; 94640; 94760; 96374; 96375; 96376; G0378; G0379; G0481; J0456; J2405; J2920; J2930; J7512; J7620; Q0163; 97530; 99285-25